=== PATIENT | female | born 1940 | race Two or more races ===

== ENCOUNTER 2017-10-16 22:17 | Emergency (ER) | payer OTHER ==
[~2017-10-16] VITALS: Ht 157.5 cm; Wt 59.0 kg
[2017-10-16] MEDS ORDERED: FORTAMET500 MG (23:07)
[2017-10-17] MEDS ORDERED: BUTALB-ACETAMI1 EACH PO (03:06)
== END 2017-10-17 03:21 | disposition home or self-care (01) ==
LOC: ER 22:17
DX: G43.809 Other migraine, not intractable, without status migrainosus (principal)